=== PATIENT | female | born 1940 | race Caucasian/White ===

== ENCOUNTER 2024-07-06 23:42 | Inpatient (IN) | payer MEDICARE, SELFPAY ==
[2024-07-06 18:19] VITALS: BP 148/104
[2024-07-06 18:20] VITALS: BP 148/104
[2024-07-06 18:54] LABS: Anisocytosis 2+; Hypochromasia 1+; Macrocytosis 2+; Microcytosis 2+; Normal RBC Morphology No
[2024-07-06 18:55] LABS: % Basophils 0.3 % (0-2); % Immature Granulocytes 0.4 % (0-0.5); % Lymphocytes 5.9 % (20.5-51.1); % Monocytes 19.7 % (1.7-9.3); % Neutrophils 73.7 % (42.2-75.2); ALT (SGPT) 17 U/L (0-35); AST (SGOT) 27 U/L (14-36); Absolute Lymphocytes 0.5 10^3/uL (1.2-3.4); Absolute Monocytes 1.8 10^3/uL (0.1-0.6); Absolute Neutrophils 6.6 10^3/uL (1.4-6.5); Albumin 3.6 g/dl (3.5-5.0); Alkaline Phosphatase 164 U/L (38-126); Basophilic Stippling Slight; Blood Urea Nitrogen 25 mg/dl (7-17); Carbon Dioxide 28 mmol/L (22-30); Chloride 91 mmol/L (98-107); Glucose 116 mg/dl (70-99); Hematocrit 29.7 % (37.0-47.0); Hemoglobin 10.3 g/dL (12.0-16.0); Mean Corp Hgb Conc. 34.7 g/dL (33.0-37.0); Mean Corpuscular Hgb 30.7 pg (27.0-31.0); Mean Corpuscular Volume 88.4 fL (81.0-99.0); Mean Platelet Volume 9.6 fL (7.4-10.4); Nucleated Red Blood Cells % 0 %; Platelet Count 239 10^3/uL (130-400); Polychromasia 1+; Potassium 4.4 mmol/L (3.5-5.1); Red Blood Cell Count 3.36 10^6/uL (4.20-5.40); Red Cell Dist. Width 21.3 % (11.5-14.5); Sodium 124 mmol/L (135-145); Target Cells 1+; Total Bilirubin 0.5 mg/dl (0.2-1.3); Total Protein 6.6 g/dl (6.3-8.2); eGFR > 60.00
[2024-07-06 19:00] VITALS: BP 121/79
[2024-07-06 19:04] LABS: NT-proBNP 870 pg/ml; Troponin I < 0.012 ng/ml
--- NOTE | 2024-07-06 19:24 | ED.GENMED ---
History of Present Illness
General
Chief Complaint: Breathing Problem
Time Seen by Provider: 07/06/24 18:58
History of Present Illness
History of Present Illness:
84-year-old female with history of metastatic lung cancer, metastasis to bone, presenting to the ER for increased shortness of breath. Patient was diagnosed with lung cancer in . She has undergone 4 rounds of chemotherapy and has
also been on immunomodulating medications. She had a PET scan a few weeks ago, shows worsening of her tumor burden. Throughout the weekend, family notes that they have had difficulty keeping her oxygen saturations normal. They have had to use her
's air compressor to help keep her sats in the 90s, however primarily have been in the high 80s. Patient admits to shortness of breath. She denies cough. No report of any fever. She was due to get another infusion tomorrow. She follows
with [facility]. Does report history of DVT in the past, however notes that it is provoked. She is on aspirin, otherwise no thinners. Denies additional acute medical complaints.
Phy Exam
Physical Exam
Physical Exam:
General: Well-appearing, no clinical signs of dehydration, nontoxic and in no acute distress
HEENT: protecting airway
Neck: appears supple
CV: Tachycardic, regular rhythm, no evidence of cyanosis
Resp: Increased work of breathing, diminished air movement bilaterally
Abd: Soft and non-distended, no tenderness to palpation
Extremities: No deformities, no swelling
Neuro: alert, no focal neurologic deficit
: deferred
Rectal: deferred
Psych: Normal affect
Skin: Intact
Scores
Heart Failure Risk
Heart Failure Risk Score: Not Applicable
Course
Orders/Labs/Results
Orders:
Orders
07/06/24 18:32
Complete Blood Count/With Diff Urgent
Comprehensive Metabolic Panel Urgent
NT-proBNP Urgent
Troponin I Urgent
07/06/24 19:12
CT Chest PE Study Urgent
Comment:
Reason For Exam: known lung ca, tachy, hypoxic
07/06/24 23:00
Flush (0.9% Sodium Chloride) [Flush (Nss)] See Dose Instructions IV PER PROTOCOL
07/06/24 23:09
Osmolality, Random Urine Stat
Urine Sodium Stat
07/06/24 23:24
Admit/Transfer Patient As Directed
Co-Sign Provider:
Level of Care: Inpatient admission
Assign to:: Telemetry
Physician / Group: hospitalist
Diagnosis: pleural effusion
Reason for Telemetry: Other
Other Reason for Telemetry: paroxysmal SVT
Date to Stop Telemetry: 07/08/24
Time to Stop Telemetry: 11:00
Reason for Hospitalization: hypoxia
Expected length of stay greater than two midnights?: Yes
ELOS- Estimated Length of Stay in days: 2
I certify the patient meets the requirements for IP care: Yes
PRN Pain Medication Management As Directed
May give lesser potent ordered pain med per pt: Yes
preference::
Protocol:: Medication orders for pain may be administered in a
manner that supports deferring to patient preference
when the pt is:
- Requesting an ordered lesser potent pain medication.
Least to most potent pain medications are defined
as: acetaminophen < NSAID < tramadol < opioids
(morphine, oxycodone, hydromorphone).
- Requesting a lesser dose of the same medication IF
ORDERED.
- Requesting a less intrusive route of administration
if both routes are prescribed by the provider (PO <
IV).
07/06/24 23:26
Code Status As Directed
Resuscitation Status: Full Code
07/08/24 11:00
DC Protocol for Telemetry ONCE
Abnormal Lab Results
07/06/24
18:32
RBC 3.36 L 10^6/uL
(4.20-5.40)
Hgb 10.3 L g/dL
(12.0-16.0)
Hct 29.7 L %
(37.0-47.0)
RDW 21.3 H %
(11.5-14.5)
Absolute Neuts (auto) 6.6 H 10^3/uL
(1.4-6.5)
Absolute Lymphs (auto) 0.5 L 10^3/uL
(1.2-3.4)
Absolute Monos (auto) 1.8 H 10^3/uL
(0.1-0.6)
Lymphocytes % 5.9 L %
(20.5-51.1)
Monocytes % 19.7 H %
(1.7-9.3)
Sodium 124 L mmol/L
(135-145)
Chloride 91 L mmol/L
(98-107)
BUN 25 H mg/dl
(7-17)
Glucose 116 H mg/dl
(70-99)
Alkaline Phosphatase 164 H U/L
(38-126)
07/06/24 18:32
07/06/24 18:32
Vital Signs
Initial and Last Documented VS:
Initial Vital Signs
Temp Pulse Resp BP Pulse Ox
98.2 F 118 22 148/104 93
07/06/24 18:19 07/06/24 18:19 07/06/24 18:19 07/06/24 18:19 07/06/24 18:19
Last Documented Vital Signs
Temp Pulse Resp BP Pulse Ox
98.2 F 124 28 132/84 92
07/06/24 18:19 07/06/24 20:30 07/06/24 20:30 07/06/24 20:15 07/06/24 20:30
MDM/Problems Addressed
MDM/Problems Addressed:
84-year-old female with history of metastatic lung cancer presenting for increased shortness of breath for the past few days. Vital signs significant for tachycardia and hypoxia.
On exam, patient is tachypneic, however saturations have improved on supplemental O2. Diminished air movement bilaterally. Ultimately suspect symptoms from worsening cancerous process. She is afebrile, no cough with lower suspicion for infection.
PE is a consideration given patient's known malignancy and vital signs. Will plan for CT chest imaging.
22:00 -Labs relatively unremarkable. CT shows a large left-sided pleural effusion, likely malignant. Suspect etiology of presenting shortness of breath and hypoxia. Plan for admission for potential thoracentesis. Of note, CT does mention an
aortic aneurysm. On review of patient's PET scan that family has bedside, noted to be also mention on PET scan, reported to be 'stable ascending aortic aneurysm at 4.2 cm'.
*Critical Care Note
Total Time (30-74mins, 75-104mins- exclusive of procedures): Not Applicable
ED Attending Note
-
Portions of this chart may have been created with voice recognition software.� Occasional wrong word or��sound alike� substitutions may have occurred due to the inherent limitations of voice recognition software.
Discharge Plan
Departure
Patient Disposition: Admit
Date of Disposition: 07/06/24
Time of Disposition: 22:16
Presentation/result/management discussed w/ accepting MD/DO: Hospitalist
Condition: Fair
Discharge Problem:
Pleural effusion, left, Acute dyspnea, Acute hyponatremia
Interventions
Interventions:
*Risk Screen - Suicide Last Done: 07/06/24 18:19
*General Assessment Last Done: 07/06/24 18:19
*Neglect/Abuse Screening Last Done: 07/06/24 18:19
*ED COVID-19 Vaccine History Last Done: 07/06/24 18:19
ED- Cardiac Assessment Last Done: 07/06/24 18:59
ED- Pulmonary Assessment Last Done: 07/06/24 18:59
[2024-07-06 20:15] VITALS: BP 132/84
[2024-07-06 22:00] VITALS: BP 117/83
[2024-07-06 23:00] VITALS: BP 157/90
--- NOTE | 2024-07-06 23:10 | HPS.HSE ---
Family Physician
-
Family Physician: NOT KNOW UNKNOWN - PT DOES
Chief Complaint
-
Shortness of breath
History of Present Illness
This is a 84-year-old female with significant past medical history of metastatic lung cancer dgx Mar 2024, not O2 dependent, status post 4 rounds of chemo presenting to the emergency department with increased shortness of breath over the last 2 days.
Patient has history of hypertension, hyperlipidemia, former smoker with history of COPD, history of aortic insufficiency and known AAA and ascending aortic aneurysm who was diagnosed with metastatic lung cancer recently and is status post 4 cycles
of chemotherapy pending immunotherapy on Sunday. She had a PET scan a few weeks ago, shows worsening of her tumor burden. Throughout the weekend, family notes that they have had difficulty keeping her oxygen saturations normal. They have had to
use her 's air compressor to help keep her sats in the 90s, however primarily have been in the high 80s.
Patient denies having any fevers. She denies any cough. She denies any nausea or vomiting. She denies having any chest pain. She denies any palpitations lightheadedness dizziness. She denies any ankle swelling. Prior history of DVT which was
provoked.
In ED today she was afebrile, blood pressure was 132/84 with a pulse rate of 120 and she was satting 93% on 2 L. Troponin was negative. BNP was elevated at 870. CBC was unremarkable. Electrolytes notable for a sodium of 124 otherwise
unremarkable. Creatinine was 0.6 with a BUN of 25 and normal glucose. She had a a CT of the chest with PE study which is negative for PE. He does show evidence for thoracic aortic dissection. There is aneurysmal dilation of the ascending aorta,
short axis diameter of 4.3 cm at the level of the right main pulmonary artery, top normal considered 4.0 cm. Spiculated mass within the left upper lobe inferiorly and anteriorly, likely patient's known lung carcinoma. Moderate left pleural
effusion with loculation superiorly and laterally. Some thickening along the margin of the effusion, suggesting a neoplastic component.
This aneurysmal dilation of the ascending aorta is similar to prior from CT results brought by family.
Medical History
Past Medical History
Past Medical History: Reports Arrhythmia (Paroxysmal supraventricular tachycardia,), Cancer (Metastatic lung cancer diagnosed March 2024, status post 4 rounds of chemo, pending immunomodulation, history of breast cancer status postmastectomy,),
HTN, Hypercholesterolemia and Valvular Disease (Moderate aortic insufficiency,)
Past Surgical History: Reports Cholecystectomy, Gynocological (Partial hysterectomy) and Other (Right breast partial mastectomy, parotid gland tumor removal,)
Social History
Tobacco: Former Smoker
Alcohol: None
Drug: None
Personal:
Living: With Family
Employment: Retired
Family History
Family History: Not pertinent
Allergies / Home Medications
Allergies reflects when Allergies were last updated in [employer].
Home Medications with original date entered in [employer]
Allergy/Medication List:
Allergies
Allergy/AdvReac Type Severity Reaction Status Date / Time
amoxicillin Allergy Unknown Verified 07/06/24 19:47
Penicillins Allergy Unknown Verified 07/06/24 19:47
Home Medications
acetaminophen 325 mg tablet (Tylenol) 500 mg PO TID 07/06/24
albuterol 90 mcg/actuation aerosol inhaler 90 mcg inhalation Q4 breathing 07/06/24
aspirin 81 mg tablet 81 mg PO DAILY 07/06/24
carboplatin 450 mg intravenous powder for solution 348 mg IV ONCE 07/06/24
folic acid 1 mg tablet 1 mg PO DAILY 07/06/24
gabapentin 100 mg tablet 200 mg PO TID 07/06/24
guaifenesin 600 mg tablet, extended release 12 hr (Mucinex) 600 mg PO BID 07/06/24
lisinopril 20 mg tablet 40 mg PO DAILY 07/06/24
mesalamine 500 mg capsule,extended release 1,000 mg PO DAILY 07/06/24
metoprolol succinate 25 mg tablet,extended release 24 hr 25 mg PO DAILY 07/06/24
pembrolizumab 50 mg intravenous solution 200 mg IV ONCE 07/06/24
pemetrexed 500 mg intravenous powder for solution 725 mg IV ONCE 07/06/24
polyethylene glycol 3350 17 gram oral powder packet (Miralax) 17 g PO DAILY PRN constipation 07/06/24
rosuvastatin 40 mg tablet 40 mg PO DAILY 07/06/24
tiotropium bromide 18 mcg capsule with inhalation device (Spiriva with HandiHaler) 2 cap inhalation DAILY 07/06/24
tramadol 50 mg tablet 50 mg PO TID 07/06/24
Review of Systems
-
History Source: Patient and Family
Constitutional: Reports Weight Loss
EENT: Reports No Symptoms
Respiratory: Reports Trouble Breathing
Cardiac: Reports No Symptoms
Abdomen/GI: Reports No Symptoms
: Reports No Symptoms
Musculoskeletal: Reports No Symptoms
Skin: Reports No Symptoms
Neurological: Reports No Symptoms
Endocrine: Reports No Symptoms
Hematologic/Lymphatic: Reports No Symptoms
Psych: Reports No Symptoms
Physical Exam
Vital Signs
Vital Signs
Temp Pulse Resp BP Pulse Ox
98.2 F 124 28 132/84 92
07/06/24 18:19 07/06/24 20:30 07/06/24 20:30 07/06/24 20:15 07/06/24 20:30
Physical Exam
General: Respiratory Distress, Poor Appetite and Appears Chronically Ill
HEENT: NormoCephalic, Anicteric, Moist mucous membranes and Atraumatic
Respiratory: Decreased Breath Sounds
Cardiac: S1/S2, Regular Rhythm and Tachycardia
Breast: Deferred by me
GI: Soft, Non Tender, Non Distended and Normal Bowel Sounds
Rectal: Deferred by Provider
Genito-urinary: Deferred by me
Musculoskeletal: No Clubbing, No Cyanosis and No Edema
Skin: Warm
Neuro: AO x 3 and Nonfocal/grossly intact
Hematologic/Lymphatic: No Lymphadenopathy
Psych: Calm
Laboratory Results
-
07/06/24 18:32
07/06/24 18:32
Laboratory Results
Total Bilirubin 0.5 mg/dl (0.2-1.3) 07/06/24 18:32
AST 27 U/L (14-36) 07/06/24 18:32
ALT 17 U/L (0-35) 07/06/24 18:32
Alkaline Phosphatase 164 U/L (38-126) H 07/06/24 18:32
Troponin I < 0.012 ng/ml 07/06/24 18:32
Data Reviewed
-
CT Scan: Report Reviewed by me
Lab Data: Labs Reviewed by me
Old Records: Reviewed
Impression/Plan
-
IMPRESSION:
84-year-old with recent diagnosis of metastatic lung cancer presenting to the emergency department with progressive shortness of breath over the last 2 days, hypoxia without cough fevers or chills and found to have a new loculated moderate
left-sided pleural effusion, no pulmonary embolism. She is maintaining oxygen saturation of around 95 to 97% on 2 L. She still feels very dyspneic. BNP is elevated but no signs of overt volume overload. Sodium notable for being 124 no priors to
compare.
PLAN:
SOB -suspect secondary to malignant pleural effusion. Effusion is loculated. No signs of acute infection.
- admit to telemetry
- supplemental oxygen to keep sat >93
- pain control and anxiolytic
- IR consult for therapeutic thoracentesis in am, diagnostic labs ordered
- monitor for any signs of infection
- continue neb (no signs of acute COPD exacerbation)
- pulm consult
Hyponatremia - Likely related to metastatic lung Ca. Na 124. She does seem dry on exam. BNP elevated and normotensive.
- d/w nephro, fluid restriction to 1200 cc for now
- no iv fluids recommended
- check urine osms and sodium
- nephrology consult
Metastatic lung Ca - diagnosed Mar 2024, s/p carboplatin/pemetrexed x 4 cycles. Pending immunomodulation therapy at [facility] sunday
- pain control and antiemetics
- folate
HTN/SVT
- continue metoprolol and lisinopril
DVT PPX - lovenox sq
Code status - Full Code
[2024-07-07] VITALS (10 sets, daily range): BP systolic 107–166; BP diastolic 68–101; BMI 19.2
[2024-07-07] MEDS: ProAIR HFA INHALER 2 PUFF INH (01:20)
[2024-07-07] MEDS: DILAUDID 0.5 MG IV (01:40)
[2024-07-07] MEDS: ASPIR LOW (ENTERIC COATED) PO (07:50)
[2024-07-07] MEDS: CRESTOR 40 MG PO (07:53)
[2024-07-07] MEDS: MUCINEX 600 MG PO (07:53)
[2024-07-07] MEDS: TOPROL XL 25 MG PO (07:53)
[2024-07-07] MEDS: ZESTRIL 40 MG PO (07:53)
[2024-07-07] MEDS: ULTRAM 50 MG PO ×3 (07:54→21:04)
[2024-07-07] MEDS: TYLENOL 500 MG PO ×3 (07:54→21:04)
[2024-07-07] MEDS: FOLVITE 1 MG PO (07:54)
[2024-07-07 08:02] LABS: Hematocrit 29.4 % (37.0-47.0); Hemoglobin 10.4 g/dL (12.0-16.0); Mean Corp Hgb Conc. 35.4 g/dL (33.0-37.0); Mean Corpuscular Hgb 30.5 pg (27.0-31.0); Mean Corpuscular Volume 86.2 fL (81.0-99.0); Mean Platelet Volume 9.8 fL (7.4-10.4); Platelet Count 264 10^3/uL (130-400); Red Blood Cell Count 3.41 10^6/uL (4.20-5.40); Red Cell Dist. Width 21.1 % (11.5-14.5); White Blood Cell Count 7.6 10^3/uL (4.8-10.8)
[2024-07-07] MEDS: XOPENEX HFA 45 MCG INHALER 1 PUFF INH ×2 (08:10→18:26)
[2024-07-07] MEDS: SPIRIVA RESPIMAT 2.5 MCG 2 PUFF INH (08:10)
[2024-07-07 08:20] LABS: Blood Urea Nitrogen 15 mg/dl (7-17); Calcium 8.4 mg/dl (8.4-10.2); Carbon Dioxide 30 mmol/L (22-30); Chloride 99 mmol/L (98-107); Estimated Creatinine Clearance 51 ml/min; Glucose 102 mg/dl (70-99); LDH 286 U/L (120-246); Potassium 4.1 mmol/L (3.5-5.1); Sodium 134 mmol/L (135-145); Total Protein 6.1 g/dl (6.3-8.2); eGFR > 60.00
[2024-07-07] MEDS: NEURONTIN 200 MG PO ×3 (10:21→21:04)
--- NOTE | 2024-07-07 11:45 | W.CON.NEPH ---
Consultation
-
Date/Time Consultation Requested: 07/07/2024 7 AM
Date/Time Consultation Performed: 07/07/24 11 AM
Requesting Provider: Dr. Roberts
Performing Provider: Dr. Palacios
Reason for Consultation: Hyponatremia
Medical History
-
Chief Complaint: Shortness of breath
History of Present Illness:
This is an 84-year-old female who has diagnosis of metastatic lung cancer March 2024 who has undergone 4 rounds of chemotherapy with immunotherapy. She came to the emergency room because of worsening shortness of breath of the last 2 days. She
also reports decreased oral intake in the last day as well. She generally eats fairly well and drinks about 48 to 50 ounces of fluid per day mostly water. Because of worsening oxygen saturations she came to the ER. Here she was noted to have
hyponatremia with a sodium level of 121. They have older blood work which do show varying hyponatremia numbers around 130 on average since diagnosis in March. She does have hypertension on a multidrug regimen as well as hyperlipidemia on statin
therapy.
Past Medical History
Paroxysmal supraventricular tachycardia, Metastatic lung cancer diagnosed March 2024, status post 4 rounds of chemo, pending immunomodulation, history of breast cancer status postmastectomy, HTN, Hypercholesterolemia and Moderate aortic
insufficiency
Past Surgical History: Reports Cholecystectomy, Partial hysterectomy, Right breast partial mastectomy, parotid gland tumor removal
Social History
Tobacco: Former Smoker
Alcohol: None
Family History
Family History: Not Pertinent
Allergies / Home Medications
Allergy/AdvReac Type Severity Reaction Status Date / Time
amoxicillin Allergy Unknown Verified 07/06/24 19:47
Penicillins Allergy Unknown Verified 07/06/24 19:47
�Medication �Instructions �Recorded �Confirmed �Type
acetaminophen 325 mg tablet 500 mg PO TID 07/06/24 07/06/24 History
(Tylenol)
albuterol 90 mcg/actuation aerosol 90 mcg inhalation Q4 breathing 07/06/24 07/06/24 History
inhaler
aspirin 81 mg tablet 81 mg PO DAILY 07/06/24 07/06/24 History
carboplatin 450 mg intravenous 348 mg IV ONCE 07/06/24 07/06/24 History
powder for solution
folic acid 1 mg tablet 1 mg PO DAILY 07/06/24 07/06/24 History
gabapentin 100 mg tablet 200 mg PO TID 07/06/24 07/06/24 History
guaifenesin 600 mg tablet, 600 mg PO BID 07/06/24 07/06/24 History
extended release 12 hr (Mucinex)
lisinopril 20 mg tablet 40 mg PO DAILY 07/06/24 07/06/24 History
mesalamine 500 mg capsule,extended 1,000 mg PO DAILY 07/06/24 07/06/24 History
release
metoprolol succinate 25 mg 25 mg PO DAILY 07/06/24 07/06/24 History
tablet,extended release 24 hr
pembrolizumab 50 mg intravenous 200 mg IV ONCE 07/06/24 07/06/24 History
solution
pemetrexed 500 mg intravenous 725 mg IV ONCE 07/06/24 07/06/24 History
powder for solution
polyethylene glycol 3350 17 gram 17 g PO DAILY PRN constipation 07/06/24 07/06/24 History
oral powder packet (Miralax)
rosuvastatin 40 mg tablet 40 mg PO DAILY 07/06/24 07/06/24 History
tiotropium bromide 18 mcg capsule 2 cap inhalation DAILY 07/06/24 07/06/24 History
with inhalation device (Spiriva
with HandiHaler)
tramadol 50 mg tablet 50 mg PO TID 07/06/24 07/06/24 History
Review of Systems
-
Decreased appetite, shortness of breath
All other systems: Negative unless noted
Physical Exam
Vital Signs
Vital Signs
Temp Pulse Resp BP Pulse Ox
98.4 F 126 20 137/87 95
07/07/24 11:28 07/07/24 11:28 07/07/24 11:28 07/07/24 11:28 07/07/24 11:28
Lab Results
WBC 7.6 10^3/uL (4.8-10.8) 07/07/24 07:53
RBC 3.41 10^6/uL (4.20-5.40) L 07/07/24 07:53
Hgb 10.4 g/dL (12.0-16.0) L 07/07/24 07:53
Hct 29.4 % (37.0-47.0) L 07/07/24 07:53
Plt Count 264 10^3/uL (130-400) 07/07/24 07:53
Sodium 134 mmol/L (135-145) L D 07/07/24 07:53
Potassium 4.1 mmol/L (3.5-5.1) 07/07/24 07:53
Chloride 99 mmol/L (98-107) 07/07/24 07:53
Carbon Dioxide 30 mmol/L (22-30) 07/07/24 07:53
BUN 15 mg/dl (7-17) 07/07/24 07:53
Creatinine 0.5 mg/dL (0.6-1.0) L 07/07/24 07:53
eGFR > 60.00 07/07/24 07:53
Glucose 102 mg/dl (70-99) H 07/07/24 07:53
Calcium 8.4 mg/dl (8.4-10.2) 07/07/24 07:53
Uck-[id number] Pept 870 pg/ml 07/06/24 18:32
Albumin 3.6 g/dl (3.5-5.0) 07/06/24 18:32
CT chest 3-25
IMPRESSION: Motion artifact limiting evaluation of the right lower lobe pulmonary arteries. Given this limitation, no convincing evidence for pulmonary embolism.
No evidence for thoracic aortic dissection. There is aneurysmal dilation of the ascending aorta, short axis diameter of 4.3 cm at the level of the right main pulmonary artery, top normal considered 4.0 cm.
Spiculated mass within the left upper lobe inferiorly and anteriorly, likely patient's known lung carcinoma.
Moderate left pleural effusion with loculation superiorly and laterally. Some thickening along the margin of the effusion, suggesting a neoplastic component.
Enlargement of both adrenal glands, which could represent metastatic disease, although could also represent hyperplasia and/or adenomas.
Evidence for bony metastatic disease and epidural extension involving the lower thoracic and upper lumbar spine. If further imaging evaluation is desired, consideration for MRI of the thoracic spine and upper lumbar spine. Not mentioned above,
there is also evidence for scattered rib metastatic lesions.
Physical Exam
Patient is awake alert oriented and in no distress. Mood and affect were pleasant, insight and judgment were good. Pupils are equal round and reactive to light, extraocular movements are intact, sclera were anicteric. Hearing was normal, ears and
nose are intact. Oropharynx was clear. Neck was supple with trachea midline and no thyromegaly. Heart was regular rate and rhythm without rubs. Lower extremities without edema. Lungs were clear to auscultation bilaterally and with normal
excursion. Abdomen was soft, nontender, with normal active bowel sounds, and no hepatosplenomegaly. Skin was without rash and with normal turgor.
Data Reviewed
-
CT Scan: Report Reviewed by me
Medical Tests (Nuc Med, Echo etc): Image Personally Visualized and interpreted (EKG on 07/06/2024 by my reading sinus tachycardia)
Labs: Labs Reviewed by me
Old Records: Reviewed
Assessment/Plan
-
Assessment
Metastatic lung cancer
Hyponatremia
Hypertension
Back pain from bony metastasis
Plan
48 ounce fluid restriction
Await urine studies
There is been already some improvement in sodium level with conservative therapy
Follow BMP
Encourage oral intake
Discussed with family
I suspect hyponatremia is due to lung cancer with contribution of pain as well.
[2024-07-07 12:55] LABS: Osmolality Urine 340 mOsm/kg (300-900)
[2024-07-07] MEDS: XOPENEX HFA 45 MCG INHALER INH (13:26)
[2024-07-07 13:38] LABS: Urine Sodium 36 mmol/L (30-90)
--- NOTE | 2024-07-07 13:51 | CON.PUL ---
Consultation
Consultation Request
Date/Time Consultation Requested: 07/07/24
Date/Time Consultation Performed: 07/07/24
Performing Provider: Martin
Reason for Consultation: Effusion
Medical History
-
History of Present Illness:
Patient is a 84-year-old female with significant past medical history of metastatic lung cancer recently diagnosed at [facility] Mar 2024, not O2 dependent, status post 4 rounds of chemo presenting to the emergency department with increased shortness of
breath over the last 2 days. In ED today she was afebrile, blood pressure was 132/84 with a pulse rate of 120 and she was satting 93% on 2 L. Troponin was negative. BNP was elevated at 870. CBC was unremarkable. Electrolytes notable for a sodium
of 124 otherwise unremarkable. Creatinine was 0.6 with a BUN of 25 and normal glucose. She had a a CT of the chest with PE study which is negative for PE, but shows evidence for spiculated mass within the left upper lobe inferiorly and anteriorly,
with moderate left pleural effusion. She has never had effusion present before. Underwent thoracentesis today by IR.
Past Medical History
Past Medical History: Other (see list below)
Social History
Tobacco: Former Smoker
Alcohol: None
Drug: None
Family History
Family History: Reviewed & Not Pertinent
Allergies / Home Medications
Allergies
Allergy/AdvReac Type Severity Reaction Status Date / Time
amoxicillin Allergy Unknown Verified 07/06/24 19:47
Penicillins Allergy Unknown Verified 07/06/24 19:47
Home Medications
�Medication �Instructions �Recorded �Confirmed �Last Taken �Type
acetaminophen 325 mg tablet 500 mg PO TID 07/06/24 07/06/24 Unknown History
(Tylenol)
albuterol 90 mcg/actuation aerosol 90 mcg inhalation Q4 breathing 07/06/24 07/06/24 Unknown History
inhaler
aspirin 81 mg tablet 81 mg PO DAILY 07/06/24 07/06/24 Unknown History
carboplatin 450 mg intravenous 348 mg IV ONCE 07/06/24 07/06/24 Unknown History
powder for solution
folic acid 1 mg tablet 1 mg PO DAILY 07/06/24 07/06/24 Unknown History
gabapentin 100 mg tablet 200 mg PO TID 07/06/24 07/06/24 Unknown History
guaifenesin 600 mg tablet, 600 mg PO BID 07/06/24 07/06/24 Unknown History
extended release 12 hr (Mucinex)
lisinopril 20 mg tablet 40 mg PO DAILY 07/06/24 07/06/24 Unknown History
mesalamine 500 mg capsule,extended 1,000 mg PO DAILY 07/06/24 07/06/24 Unknown History
release
metoprolol succinate 25 mg 25 mg PO DAILY 07/06/24 07/06/24 Unknown History
tablet,extended release 24 hr
pembrolizumab 50 mg intravenous 200 mg IV ONCE 07/06/24 07/06/24 Unknown History
solution
pemetrexed 500 mg intravenous 725 mg IV ONCE 07/06/24 07/06/24 Unknown History
powder for solution
polyethylene glycol 3350 17 gram 17 g PO DAILY PRN constipation 07/06/24 07/06/24 Unknown History
oral powder packet (Miralax)
rosuvastatin 40 mg tablet 40 mg PO DAILY 07/06/24 07/06/24 Unknown History
tiotropium bromide 18 mcg capsule 2 cap inhalation DAILY 07/06/24 07/06/24 Unknown History
with inhalation device (Spiriva
with HandiHaler)
tramadol 50 mg tablet 50 mg PO TID 07/06/24 07/06/24 Unknown History
Review of Systems
-
History Source: Patient
All other systems: Negative unless noted
Vitals / Labs / Diagnostic Testing
Vital Signs
Temp Pulse Resp BP Pulse Ox
97.7 F 123 26 144/78 98
07/07/24 13:20 07/07/24 13:20 07/07/24 13:20 07/07/24 13:20 07/07/24 13:20
Lab Data
07/07/24 07:53
07/07/24 07:53
Diagnostic Testing:
Physical Exam
-
HEENT: Normocephalic, Anicteric and Moist Mucous Membranes
Cardiovascular: S1/S2, Regular Rhythm and Other (kyphosis present)
Respiratory: Clear, Non-Labored Respirations and Other (overall decreased)
GI: Soft, Non Distended and Non Tender
Neurology: Awake, Alert, Oriented and No Motor Deficits
Skin: Warm, Dry and Good Color
General: Comfortable, Poor Appetite and Other (thin appearing)
Assessment
-
Patient is a 84-year-old female with significant past medical history of metastatic lung cancer recently diagnosed at [facility] Mar 2024, not O2 dependent, status post 4 rounds of chemo presenting to the emergency department with increased shortness of
breath over the last 2 days. In ED today she was afebrile, blood pressure was 132/84 with a pulse rate of 120 and she was satting 93% on 2 L. Troponin was negative. BNP was elevated at 870. CBC was unremarkable. Electrolytes notable for a sodium
of 124 otherwise unremarkable. Creatinine was 0.6 with a BUN of 25 and normal glucose. She had a a CT of the chest with PE study which is negative for PE, but shows evidence for spiculated mass within the left upper lobe inferiorly and anteriorly,
with moderate left pleural effusion. She has never had effusion present before. Underwent thoracentesis today by IR.
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
Metastatic lung cancer, recently diagnosed March 2024 at [facility]
Acute on chronic shortness of breath
Acute hypoxemia, satting 93% on 2 L
Hyponatremia
Conditions present prior to admission
HTN
Atrial tachycardia
Heavy cigarette smoker
Mild aortic insufficiency
Paroxysmal SVT
DVT
Diverticulitis
Moderate aortic insufficiency
Hyperlipidemia
AAA
MGUS
Diverticulosis
Osteoporosis
Plan
Hypoxemia noted on arrival, 93% on 2L
Not on o2 at home, will need eventual home O2 evaluation
Prior history of lung disease is noted including met lung cancer diagnosed at [facility]
Has seen [facility] for FU
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
s/p thora by IR, chem/culture/cyto pending
CXR/CT obtained indicating improvement post procedure, can recheck in next 24-48 hours for recurrence
We discussed possibility of ASEPT use if needed
Other imaging reviewed--CT Chest noted, known L sided cancer
No prior imaging from [facility] noted
Prior ECHO results are reviewed indicating stable function
Resume on home meds
Smoking history noted--former/has quit
Smoking cessation ongoing encouraged
Underweight noted, BMI 19
Dietary consult
Will need outpatient pulmonary evaluation --we discussed following at [facility] where she is established
Reviewed with patient
If doing well and no recurrence of fluid, can assess for d/c and forward results to OP care team
We will follow
Diagnostic Data
Chest X-Ray:
CT Scan: CHEST 07/06/24- Motion artifact limiting evaluation of the right lower lobe pulmonary arteries. Given this limitation, no convincing evidence for pulmonary embolism. No evidence for thoracic aortic dissection. There is aneurysmal dilation of
the ascending aorta, short axis diameter of 4.3 cm at the level of the right main pulmonary artery, top normal considered 4.0 cm. Spiculated mass within the left upper lobe inferiorly and anteriorly, likely patient's known lung carcinoma. Moderate
left pleural effusion with loculation superiorly and laterally. Some thickening along the margin of the effusion, suggesting a neoplastic component. Enlargement of both adrenal glands, which could represent metastatic disease, although could also
represent hyperplasia and/or adenomas. Evidence for bony metastatic disease and epidural extension involving the lower thoracic and upper lumbar spine. If further imaging evaluation is desired, consideration for MRI of the thoracic spine and upper
lumbar spine. Not mentioned above, there is also evidence for scattered rib metastatic lesions.
ECHO 10/04/22- CONCLUSIONS
1. Normal chamber sizes
2. Moderate to severe aortic insufficiency/mild stenosis
3. Normal left and right ventricular systolic function
4. Grade 1 diastolic dysfunction
5. Mild pulmonary hypertension
Echo: 07/29/21- CONCLUSIONS
1. Normal chamber sizes
2. Aortic valve sclerosis with moderate to severe aortic insufficiency
3. Hyperdynamic left ventricular wall motion and systolic function
4. Normal right ventricular systolic function
5. Grade 1 diastolic dysfunction
6. Top normal to mildly elevated right ventricular systolic pressure
PFT's:
Reports and relevant images were personally reviewed.
Total time spent on this consultation __76__ minutes which includes review of history, physical exam, medications, laboratory data, personal review of imaging, extensive review of outpatient records, discussion with care team and respiratory therapy.
[2024-07-07 14:45] LABS: Body Fluid Amylase 43 U/L; Body Fluid LDH 211 U/L; Body Fluid Protein 4.2 g/dl
--- NOTE | 2024-07-07 15:04 | W.PN.HOSP.TC ---
Today's Communication/Plan
-
Wean oxygen as able
Pulmonary consult
Resume diet
Assessment / Plan
Assessment / Plan
Gen-AAOx3, NAD
HEENT-NC, AT, anicteric, clear oral mm
Neck-supple
CV-reg, no M, +S1/S2
Lungs-clear B/L
Abd-soft, NT, ND
Ext-no edema
Musculoskeletal-no cyanosis, clubbing
Skin-warm and dry
Neuro-grossly non-focal
Psych-calm, cooperative
Acute hypoxic respiratory insufficiency -due to symptomatic pleural effusion, in the setting of underlying emphysema. Currently on 4 L nasal cannula oxygen. Wean down as able.
Symptomatic left pleural effusion -concern for malignant effusion given underlying metastatic lung cancer.
Hemodynamically stable despite tachycardia. 950 cc clear peter pleural fluid removed via thoracentesis by IR today. Fluid to be sent for cytology. LDH 211, total protein 4.2, consistent with exudative effusion based on Lights criteria.
Pulmonary consulted.
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 Lung cancer diagnosed March 2024. Completed 4 rounds of chemotherapy. Follows up with [facility], Dr. Colette Mayer ([phone]). I did provide her with an update today.
Hyponatremia -improved with fluid restriction. Nephrology following. Suspect etiology of hyponatremia is due to underlying lung cancer. Urine osmolality 340, urine sodium 36.
Normocytic anemia -unknown chronicity. Etiology is likely due to metastatic cancer. Baseline hemoglobin unknown. Recommend outpatient follow-up.
Hx PSVT
COPD without exacerbation -stable.
Hx ascending aortic aneurysm
Essential hypertension
Hyperlipidemia -rosuvastatin.
History of breast cancer
Full code
Dispo -hopefully can discharge tomorrow if stable in order to follow-up with her oncologist as soon as possible. Updated family at the bedside. All questions answered.
Anticipated Discharge: Within 24 hours
Subjective/Interval History
-
Date of Service: July 07, 2024
Patient seen and examined. Feeling better. Had thoracentesis earlier today. No complaints.
Objective Data
-
Labs:
Laboratory Results
07/07/24
07:53
WBC 7.6
Hgb 10.4 L
Hct 29.4 L
Plt Count 264
Sodium 134 L D
Potassium 4.1
Chloride 99
Carbon Dioxide 30
BUN 15
Creatinine 0.5 L
Glucose 102 H
Calcium 8.4
Vital Signs:
Vital Signs
Temp Pulse Resp BP Pulse Ox
97.7 F 122 24 113/69 98
07/07/24 13:20 07/07/24 14:04 07/07/24 14:04 07/07/24 14:04 07/07/24 13:20
I&O
07/06/24 07/07/24 07/08/24
06:59 06:59 06:59
Intake Total 120 / 120
Balance 120 / 120
Review of Systems
-
History Source: Patient
All other systems: Reviewed and negative
[2024-07-07 15:55] LABS: Body Fluid Mononuclear 60.6 %; Body Fluid Polymorphonuclear 39.4 %; Body Fluid WBC 807 /CUMM
[2024-07-07 16:04] LABS: Body Fluid Second Tech EYM
[2024-07-07] MEDS: LOVENOX 30 MG SC (17:45)
--- NOTE | 2024-07-07 17:47 | CM ---
CM reviewed medical records. Plan for discharge possible tomorrow. CM will await Home Oxygen Assessment for further discharge planning needs.
[2024-07-07] MEDS: MUCINEX PO ×2 (21:04→21:14)
[2024-07-08] VITALS (7 sets, daily range): BP systolic 95–145; BP diastolic 55–89; PULSE 103; O2SAT 99
[2024-07-08] MEDS: SPIRIVA RESPIMAT 2.5 MCG 2 PUFF INH (08:16)
[2024-07-08] MEDS: XOPENEX HFA 45 MCG INHALER 1 PUFF INH ×3 (08:16→20:04)
[2024-07-08 09:08] LABS: Blood Urea Nitrogen 17 mg/dl (7-17); Calcium 7.8 mg/dl (8.4-10.2); Carbon Dioxide 28 mmol/L (22-30); Chloride 97 mmol/L (98-107); Estimated Creatinine Clearance 51 ml/min; Glucose 52 mg/dl (70-99); Sodium 134 mmol/L (135-145); eGFR > 60.00
--- NOTE | 2024-07-08 09:15 | W.PN.NEPH.PH ---
Addendum entered and electronically signed by Xiomara Mace MD 07/08/24 18:13:
with soft BP and tachycardia hold ARB, adjust BB as needed
Original Note:
Today's Communication / Plan
-
cotn FR, encourage solute intake
Assessment/Plan
-
Assessment
Metastatic lung cancer
Hyponatremia
Hypertension
Back pain from bony metastasis
Plan
sodium stable , cont 48 ounce fluid restriction
U osmo 340 high suggests SIADH from malignancy and pain , U na 36
Encourage oral solute intake
Discussed with family
monitro Bps
-
-
Date of Service: July 08, 2024
CC / HPI / ROS
-
Chief Complaint:
hyponatremia
History of Present Illness:
sodium stable 134, bp stable
BG low this am , but improved post meal
no fever
s/p thoracentesis 950cc
Review of Systems:
improving sob, no cp
no nv/
Labs
-
Labs:
WBC 7.6 10^3/uL (4.8-10.8) 07/07/24 07:53
RBC 3.41 10^6/uL (4.20-5.40) L 07/07/24 07:53
Hgb 10.4 g/dL (12.0-16.0) L 07/07/24 07:53
Hct 29.4 % (37.0-47.0) L 07/07/24 07:53
Plt Count 264 10^3/uL (130-400) 07/07/24 07:53
Sodium 134 mmol/L (135-145) L 07/08/24 06:38
Potassium 4.0 mmol/L (3.5-5.1) 07/08/24 06:38
Chloride 97 mmol/L (98-107) L 07/08/24 06:38
Carbon Dioxide 28 mmol/L (22-30) 07/08/24 06:38
BUN 17 mg/dl (7-17) 07/08/24 06:38
Creatinine 0.5 mg/dL (0.6-1.0) L 07/08/24 06:38
eGFR > 60.00 07/08/24 06:38
Glucose 52 mg/dl (70-99) L* 07/08/24 06:38
Calcium 7.8 mg/dl (8.4-10.2) L 07/08/24 06:38
Trn-L-Yhaaryivoxj Pept 870 pg/ml 07/06/24 18:32
Albumin 3.6 g/dl (3.5-5.0) 07/06/24 18:32
Physical Exam
-
Vital Signs:
Vital Signs
Temp Pulse Resp BP Pulse Ox
98 F 120 16 95/55 97
07/08/24 11:13 07/08/24 11:13 07/08/24 11:13 07/08/24 11:13 07/08/24 11:13
Cardiovascular:: Regular rate and rhythm
Respiratory:: Bilateral: Rales (fine at bases)
Lung Excursion:: Normal
Abdomen:: Nontender and Soft
Extremity Edema:: None: Bilateral:
Malone Catheter: No
[2024-07-08] MEDS: ZESTRIL 40 MG PO (09:20)
[2024-07-08] MEDS: FOLVITE 1 MG PO (09:20)
[2024-07-08] MEDS: ULTRAM 50 MG PO ×3 (09:20→21:31)
[2024-07-08] MEDS: TYLENOL 500 MG PO ×3 (09:20→21:31)
[2024-07-08] MEDS: ASPIR LOW (ENTERIC COATED) 81 MG PO (09:21)
[2024-07-08] MEDS: NEURONTIN 200 MG PO ×3 (09:21→21:30)
[2024-07-08] MEDS: CRESTOR 40 MG PO (09:21)
[2024-07-08] MEDS: TOPROL XL 25 MG PO (09:21)
[2024-07-08] MEDS: MUCINEX 600 MG PO ×2 (09:21→19:29)
--- NOTE | 2024-07-08 10:00 | W.PN.HOSP.TC ---
Addendum entered and electronically signed by Antwan Roberts DO 07/08/24 16:45:
Patient is in need of oxygen at 3 liters/minute via nasal cannula continuously due to pulse oximetry of 86% on room air at rest. Oxygen will help to improve hypoxemia. Patient is mobile within the home. DuoNeb therapy has been tried and is
ineffective in treating hypoxemia related symptoms. Oxygen is needed to improve symptoms.
Addendum entered and electronically signed by Antwan Roberts DO 07/08/24 14:02:
Underweight
Repeat CT chest shows small subsegmental embolus in the right lower lobe. No heart strain. Severe centrilobular emphysema. Small left pleural effusion. Likely some loculation.
Findings discussed with patient and family. I also spoke with the patient's outpatient oncologist. All parties agree with proceeding with anticoagulation with Eliquis. Risks of bleeding discussed.
Suspect her persistent sinus tachycardia is due to multiple issues including hypoxia, malignancy, pulmonary embolism.
Original Note:
Today's Communication/Plan
-
CT chest
PT/OT
Ambulatory pulse ox on room air
Assessment / Plan
Assessment / Plan
Gen-AAOx3, NAD
HEENT-NC, AT, anicteric, clear oral mm
Neck-supple
CV-reg, tachycardic, no M, +S1/S2
Lungs-clear B/L
Abd-soft, NT, ND
Ext-no edema
Musculoskeletal-no cyanosis, clubbing
Skin-warm and dry
Neuro-grossly non-focal
Psych-calm, cooperative
Acute hypoxic respiratory insufficiency -due to symptomatic pleural effusion, in the setting of underlying emphysema. Currently on 4 L nasal cannula oxygen. Wean down as able.
Symptomatic left pleural effusion -concern for malignant effusion given underlying metastatic lung cancer.
Hemodynamically stable despite tachycardia. 950 cc clear peter pleural fluid removed via thoracentesis by IR today. Fluid to be sent for cytology. LDH 211, total protein 4.2, consistent with exudative effusion based on Lights criteria.
Pulmonary consulted.
Sinus tachycardia -asymptomatic. CT chest on July 06 did not show obvious pulmonary embolism. However, study was limited by motion artifact. Spoke with the radiologist who read the study and plan will be to recheck CT chest to rule out pulm
embolism.
If CT does not show PE then I suspect the tachycardia could be related to multiple factors including hypoxia, malignancy, anemia.
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 Lung cancer diagnosed March 2024. Completed 4 rounds of chemotherapy. Follows up with [facility], Dr. Colette Mayer ([phone]). I did provide her with an update on July 07.
Hyponatremia -improved with fluid restriction. Nephrology following. Suspect etiology of hyponatremia is due to underlying lung cancer. Urine osmolality 340, urine sodium 36.
Normocytic anemia -unknown chronicity. Etiology is likely due to metastatic cancer. Baseline hemoglobin unknown. Recommend outpatient follow-up.
Hx PSVT
COPD without exacerbation -stable.
Hx ascending aortic aneurysm
Essential hypertension
Hyperlipidemia -rosuvastatin.
History of breast cancer
Full code
Dispo -await CT chest, PT/OT, ambulatory pulse ox on room air.
Updated family at the bedside. Updated granddaughter Peter on the phone.
Anticipated Discharge: Within 24 hours
Subjective/Interval History
-
Date of Service: July 08, 2024
Patient seen and examined. No complaints.
Objective Data
-
Labs:
Laboratory Results
07/08/24
06:38
Sodium 134 L
Potassium 4.0
Chloride 97 L
Carbon Dioxide 28
BUN 17
Creatinine 0.5 L
Glucose 52 L*
Calcium 7.8 L
Vital Signs:
Vital Signs
Temp Pulse Resp BP Pulse Ox
98.8 F 135 20 136/85 95
07/08/24 07:00 07/08/24 08:22 07/08/24 08:22 07/08/24 07:00 07/08/24 08:22
I&O
07/07/24 07/08/24 07/09/24
06:59 06:59 06:59
Intake Total 120 / 120 420 / 420 480 / 480
Balance 120 / 120 420 / 420 480 / 480
Review of Systems
-
History Source: Patient
All other systems: Reviewed and negative
--- NOTE | 2024-07-08 10:32 | PN.CDI ---
CDI
- -
CDI:
Physician Documentation Request
Admit Date: 07/06/24 23:42
Dear Doctor Alejandra,
Patient admitted with pleural effusion.
Please review the following and provide your response in the progress notes.
Clinical Indicators:
Height: 5' 1'
Weight: 101 llbs
BMI: 19.1
If possible, please provide an associated diagnosis related to the abnormal BMI, such as:
Underweight
Cachectic
BMI is not significant
Other
BMI < or = to 19.9
Underweight
Weight Loss
Cachectic
Anorexia
Use of terms such as suspected, likely, concern for, or probable (associated with a specific diagnosis that is being evaluated, monitored, or treated as if it exists) are acceptable and can be coded in the inpatient setting, when documented at the
time of discharge.
Thank you,
Ashlyn Brenner RN, BSN
CDI Specialist
Available via [facility] text
Please use your independent medical judgment in providing your response.
--- NOTE | 2024-07-08 11:09 | CM ---
Addendum entered by Luzma Mora 07/08/24 16:21:
referral sent to [facility] faxed and awaiting response. CM will also send referral to home health per family choice when they determine who patient currently has coming to home. IMM form provided and patient to review with family for discharge
when O@ has been confirmed, tomorrow.
Original Note:
Patient for assessment of home health for home O2, pending assessment. Patient son in law at bedside. He has [facility] and will talk to family about options, but feels that patient may chose [facility]. CM will continue to follow for
discharge planning needs.
Plan; home with home O2 pending assessment
[2024-07-08 11:30] LABS: Glucose - Point of Care 235 mg/dl (70-99)
[2024-07-08] MEDS: ELIQUIS 10 MG PO ×2 (12:32→19:29)
--- NOTE | 2024-07-08 13:17 | W.PN.PUL3 ---
Today's Communication / Plan
-
Better today, ambulating, needs PT eval
CT showing small PE, placed on Eliquis per team
Can repeat CXR in AM to eval fluid recurrence, cyto still pending
If stable, can consider d/c planning if patient agreeable
Assessment
-
Patient is a 84-year-old female with significant past medical history of metastatic lung cancer recently diagnosed at [facility] Mar 2024, not O2 dependent, status post 4 rounds of chemo presenting to the emergency department with increased shortness of
breath over the last 2 days. In ED today she was afebrile, blood pressure was 132/84 with a pulse rate of 120 and she was satting 93% on 2 L. Troponin was negative. BNP was elevated at 870. CBC was unremarkable. Electrolytes notable for a sodium
of 124 otherwise unremarkable. Creatinine was 0.6 with a BUN of 25 and normal glucose. She had a a CT of the chest with PE study which is negative for PE, but shows evidence for spiculated mass within the left upper lobe inferiorly and anteriorly,
with moderate left pleural effusion. She has never had effusion present before. Underwent thoracentesis today by IR.
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
Metastatic lung cancer, recently diagnosed March 2024 at [facility]
Acute on chronic shortness of breath
Acute hypoxemia, satting 93% on 2 L
Hyponatremia
Small subseg PE in RLL
Conditions present prior to admission
HTN
Atrial tachycardia
Heavy cigarette smoker
Severe emphysema on CT
Mild aortic insufficiency
Paroxysmal SVT
DVT
Diverticulitis
Moderate aortic insufficiency
Hyperlipidemia
AAA
MGUS
Diverticulosis
Osteoporosis
Plan
Hypoxemia noted on arrival, 93% on 2L
Not on o2 at home, will need eventual home O2 evaluation
Prior history of lung disease is noted including met lung cancer diagnosed at [facility]
Has seen [facility] for FU
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
s/p thora by IR, chem/culture/cyto pending
Chem: pH 7.5 - wbc 807 - tp 4.2 - ldh 211 -- exudative
Culture negative TD
CXR/CT obtained indicating improvement post procedure, can recheck in next 24-[address] reviewed, small PE noted, started on OAC
Can recheck CXR in AM for fluid recurrence
We discussed possibility of ASEPT use if needed
Other imaging reviewed--CT Chest noted, known L sided cancer
No prior imaging from [facility] noted
Prior ECHO results are reviewed indicating stable function
Resume on home meds
Smoking history noted--former/has quit
Smoking cessation ongoing encouraged
Underweight noted, BMI 19
Dietary consult
Will need outpatient pulmonary evaluation --we discussed following at [facility] where she is established
Reviewed with patient
If doing well and no recurrence of fluid, can assess for d/c and forward results to OP care team
PT/OT eval for d/c planning
Likely can d/c in the next 24 hours if doing well
Discussed plan of care with at bedside
Diagnostic Data
Chest X-Ray:
CT Chest 07/08/24-1. Small subsegmental embolus is seen within the right lower lobe. No evidence of right heart strain.
2. Severe centrilobular emphysema.
3. Small left pleural effusion, likely with some loculation.
4. Nodule within the lingular segment measures 2 cm in diameter, likely corresponding to the patient's known lung cancer.
5. Moderate coronary arterial calcification. Please correlate with symptoms of and risk factors for coronary artery disease, with further workup as clinically appropriate.
6. Multiple compression fractures at the thoracolumbar junction, which may be acute or chronic. Please correlate for symptoms in this region.
CT Scan: CHEST 07/06/24- Motion artifact limiting evaluation of the right lower lobe pulmonary arteries. Given this limitation, no convincing evidence for pulmonary embolism. No evidence for thoracic aortic dissection. There is aneurysmal dilation of
the ascending aorta, short axis diameter of 4.3 cm at the level of the right main pulmonary artery, top normal considered 4.0 cm. Spiculated mass within the left upper lobe inferiorly and anteriorly, likely patient's known lung carcinoma. Moderate
left pleural effusion with loculation superiorly and laterally. Some thickening along the margin of the effusion, suggesting a neoplastic component. Enlargement of both adrenal glands, which could represent metastatic disease, although could also
represent hyperplasia and/or adenomas. Evidence for bony metastatic disease and epidural extension involving the lower thoracic and upper lumbar spine. If further imaging evaluation is desired, consideration for MRI of the thoracic spine and upper
lumbar spine. Not mentioned above, there is also evidence for scattered rib metastatic lesions.
ECHO 10/04/22- CONCLUSIONS
1. Normal chamber sizes
2. Moderate to severe aortic insufficiency/mild stenosis
3. Normal left and right ventricular systolic function
4. Grade 1 diastolic dysfunction
5. Mild pulmonary hypertension
Echo: 07/29/21- CONCLUSIONS
1. Normal chamber sizes
2. Aortic valve sclerosis with moderate to severe aortic insufficiency
3. Hyperdynamic left ventricular wall motion and systolic function
4. Normal right ventricular systolic function
5. Grade 1 diastolic dysfunction
6. Top normal to mildly elevated right ventricular systolic pressure
PFT's:
Reports and relevant images were personally reviewed.
Total time spent on this encounter __51__ minutes which includes review of history, physical exam, medications, laboratory data, personal review of imaging, extensive review of outpatient records, discussion with care team and respiratory therapy.
Subjective Data
-
Date of Service:
Date of Service: July 08, 2024
Chief Complaint: Pulmonary Follow Up
Subjective:
Doing well today, more SOB with exertion
Tachycardia noted as well, she appears deconditioned
at bedside
Objective Data
Data Reviewed
Vital Signs / I&O / Oxygen:
Vital Signs
Temp Pulse Resp BP Pulse Ox
98 F 120 16 95/55 97
07/08/24 11:13 07/08/24 11:13 07/08/24 11:13 07/08/24 11:13 07/08/24 11:13
Intake and Output
07/07/24 07/08/24 07/09/24
06:59 06:59 06:59
Intake Total 120 / 120 420 / 420 480 / 480
Balance 120 / 120 420 / 420 480 / 480
SaO2 97
Nasal Cannula flow liters per 4
minute
Physical Exam
General: Comfortable, Poor Appetite and Other (NAD, thin)
HEENT: Normocephalic, Anicteric and Moist Mucous Membranes
Cardiovascular: S1-S2 and Regular Rhythm
Respiratory: Clear, Non-Labored Respirations and Other (decreased BS at bases)
GI: Soft, Non Distended and Non Tender
Neurology: Awake, Alert, Oriented and No Motor Deficits
Skin: Warm, Dry and Good Color
Labs/Micro/Reports
Lab Data
07/07/24 07:53
07/08/24 06:38
Microbiology
07/07/24 14:01 Pleural Fluid Body Fluid Culture - Preliminary
No Growth After 18-24 Hours
07/07/24 14:01 Pleural Fluid Gram Stain - Preliminary
--- NOTE | 2024-07-08 13:33 | PTCARENOTE ---
Patient ambulated from door to stretcher with assist x1. Patient has a weak, slow gait. Patient sitting at side of bed for lunch. family at bedside. Patient c/o intermittent neck stiffness (chronic) and prefers a rolled towel behind her head.
[2024-07-09] VITALS (7 sets, daily range): BP systolic 87–119; BP diastolic 46–73; PULSE 109–129; O2SAT 94
[2024-07-09] MEDS: XOPENEX HFA 45 MCG INHALER 1 PUFF INH ×3 (07:10→18:01)
[2024-07-09] MEDS: SPIRIVA RESPIMAT 2.5 MCG 2 PUFF INH (07:10)
[2024-07-09 07:46] LABS: Blood Urea Nitrogen 21 mg/dl (7-17); Calcium 7.4 mg/dl (8.4-10.2); Carbon Dioxide 33 mmol/L (22-30); Chloride 98 mmol/L (98-107); Estimated Creatinine Clearance 51 ml/min; Glucose 84 mg/dl (70-99); Potassium 3.9 mmol/L (3.5-5.1); Sodium 133 mmol/L (135-145); eGFR > 60.00
[2024-07-09] MEDS: ELIQUIS 10 MG PO ×2 (09:17→19:36)
[2024-07-09] MEDS: ULTRAM 50 MG PO ×3 (09:17→21:09)
[2024-07-09] MEDS: MUCINEX 600 MG PO ×2 (09:17→19:36)
[2024-07-09] MEDS: NEURONTIN 200 MG PO ×3 (09:17→21:09)
[2024-07-09] MEDS: TYLENOL 500 MG PO ×3 (09:17→21:09)
[2024-07-09] MEDS: CRESTOR 40 MG PO (09:17)
[2024-07-09] MEDS: FOLVITE 1 MG PO (09:17)
[2024-07-09] MEDS: TOPROL XL 25 MG PO (09:18)
--- NOTE | 2024-07-09 11:16 | CM ---
Addendum entered by Luzma Mora 07/09/24 15:52:
additional referrals requested to [facility] jason mccollum, referrals sent
Addendum entered by Luzma Mora 07/09/24 14:07:
Patient just seen by Ot therapy and per OT they are recommending SNF placement at this time. Patient and son in law reviewed with patient daughter via phone, options for SNF. and requested CM send referral to [facility] and
[facility]. CM will continue to follow for discharge planning needs.
Original Note:
Patient seen at bedside with son and patient . IMM completed and signed form placed on chart. patient referral sent to [facility] and CM spoke with [facility] and they confirmed receipt and that they would be calling to patient family
to schedule delivery. CM will continue to follow for discharge planning needs.
Plan; home with VN; [facility] and home O2.
--- NOTE | 2024-07-09 11:59 | W.PN.HOSP.TC ---
Today's Communication/Plan
-
Discharge
Assessment / Plan
Assessment / Plan
Gen-AAOx3, NAD
HEENT-NC, AT, anicteric, clear oral mm
Neck-supple
CV-reg, tachycardic, no M, +S1/S2
Lungs-clear B/L
Abd-soft, NT, ND
Ext-no edema
Musculoskeletal-no cyanosis, clubbing
Skin-warm and dry
Neuro-grossly non-focal
Psych-calm, cooperative
Acute hypoxic respiratory insufficiency -due to symptomatic pleural effusion, in the setting of underlying emphysema. Currently on 2 L nasal cannula oxygen. Wean down as able. Home oxygen to be arranged by case management.
Symptomatic left pleural effusion -concern for malignant effusion given underlying metastatic lung cancer.
Hemodynamically stable despite tachycardia. 950 cc clear peter pleural fluid removed via thoracentesis by IR today. Fluid cytology pending. LDH 211, total protein 4.2, consistent with exudative effusion based on Lights criteria.
Pulmonary consulted.
Subsegmental right lower lobe acute pulmonary embolism -noted on repeat CT chest. Continue Eliquis. Suspect malignancy induced PE.
Sinus tachycardia -asymptomatic. Etiology likely multifactorial including hypoxia and pulmonary embolism. Underlying malignancy.
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 Lung cancer diagnosed March 2024. Completed 4 rounds of chemotherapy. Follows up with [facility], Dr. Colette Mayer ([phone]). I did provide her with an update on July 07.
Hyponatremia -improved with fluid restriction. Nephrology following. Suspect etiology of hyponatremia is due to underlying lung cancer. Urine osmolality 340, urine sodium 36. Sodium relatively stable, 133.
Normocytic anemia -unknown chronicity. Etiology is likely due to metastatic cancer. Baseline hemoglobin unknown. Recommend outpatient follow-up.
Hx PSVT
COPD without exacerbation -stable.
Hx ascending aortic aneurysm
Essential hypertension
Hyperlipidemia -rosuvastatin.
History of breast cancer
Full code
Dispo -stable for discharge home with VN and home oxygen.
35 minutes spent in discharge process.
Anticipated Discharge: Today
Subjective/Interval History
-
Date of Service: July 09, 2024
Patient seen and examined. No complaints.
Objective Data
-
Labs:
Laboratory Results
07/09/24
06:45
Sodium 133 L
Potassium 3.9
Chloride 98
Carbon Dioxide 33 H
BUN 21 H
Creatinine 0.6
Glucose 84
Calcium 7.4 L
Vital Signs:
Vital Signs
Temp Pulse Resp BP Pulse Ox
98.0 F 88 18 92/46 96
07/09/24 11:00 07/09/24 11:00 07/09/24 11:00 07/09/24 11:00 07/09/24 11:00
I&O
07/08/24 07/09/24 07/10/24
06:59 06:59 06:59
Intake Total 420 / 420 1080 / 1080 240 / 240
Balance 420 / 420 1080 / 1080 240 / 240
Review of Systems
-
History Source: Patient
All other systems: Reviewed and negative
--- NOTE | 2024-07-09 12:06 | W.PN.NEPH.PH ---
Today's Communication / Plan
-
Stable for discharge from nephrology standpoint need to maintain fluid restriction at discharge
Assessment/Plan
-
Assessment
Metastatic lung cancer
Hyponatremia
Hypertension
Back pain from bony metastasis
Plan
sodium stable at 133 , continue 48 ounce fluid restriction at discharge
If serum sodium levels would continue to drop I would implement sodium tablets given hypotension
U osmo 340 high suggests SIADH from malignancy and pain , U na 36
Encourage oral solute intake
Discussed with family
Remains hypotensive off GERTRUDE
Stable for discharge from nephrology standpoint
-
-
Date of Service: July 09, 2024
CC / HPI / ROS
-
Chief Complaint:
hyponatremia
History of Present Illness:
sodium stable 133,
Remains hypotensive
BG low this am , but improved post meal
no fever
s/p thoracentesis 950cc
Review of Systems:
improving sob, no cp
no nv/
Labs
-
Labs:
WBC 7.6 10^3/uL (4.8-10.8) 07/07/24 07:53
RBC 3.41 10^6/uL (4.20-5.40) L 07/07/24 07:53
Hgb 10.4 g/dL (12.0-16.0) L 07/07/24 07:53
Hct 29.4 % (37.0-47.0) L 07/07/24 07:53
Plt Count 264 10^3/uL (130-400) 07/07/24 07:53
Sodium 133 mmol/L (135-145) L 07/09/24 06:45
Potassium 3.9 mmol/L (3.5-5.1) 07/09/24 06:45
Chloride 98 mmol/L (98-107) 07/09/24 06:45
Carbon Dioxide 33 mmol/L (22-30) H 07/09/24 06:45
BUN 21 mg/dl (7-17) H 07/09/24 06:45
Creatinine 0.6 mg/dL (0.6-1.0) 07/09/24 06:45
eGFR > 60.00 07/09/24 06:45
Glucose 84 mg/dl (70-99) 07/09/24 06:45
Calcium 7.4 mg/dl (8.4-10.2) L 07/09/24 06:45
Xem-D-Knmbxvrtelg Pept 870 pg/ml 07/06/24 18:32
Albumin 3.6 g/dl (3.5-5.0) 07/06/24 18:32
Physical Exam
-
Vital Signs:
Vital Signs
Temp Pulse Resp BP Pulse Ox
98.0 F 88 18 92/46 96
07/09/24 11:00 07/09/24 11:00 07/09/24 11:00 07/09/24 11:00 07/09/24 11:00
Cardiovascular:: Regular rate and rhythm
Respiratory:: Bilateral: Rales (fine at bases)
Lung Excursion:: Normal
Abdomen:: Nontender and Soft
Extremity Edema:: None: Bilateral:
Malone Catheter: No
--- NOTE | 2024-07-09 12:23 | W.DS.TRANS ---
DC Summary - Director Traffic And Planning
-
Discharge Instructions:
Discharge Diagnosis/Procedures Symptomatic pleural effusion, pulmonary embolism
, lung cancer, hyponatremia
Diet Restrict fluids to 48 oz,Regular
Activity With assistance,As tolerated
Driving Restrictions No driving
Bathing Restrictions None
Instructions:
Stand-Alone Forms:
Changes to Home Medications: No
Discharge Medications:
DC Medications w/original date entered in [employer]
acetaminophen 325 mg tablet (Tylenol) 500 mg PO TID 07/06/24
albuterol 90 mcg/actuation aerosol inhaler 90 mcg inhalation Q4 breathing 07/06/24
folic acid 1 mg tablet 1 mg PO DAILY 07/06/24
gabapentin 100 mg tablet 200 mg PO TID 07/06/24
guaifenesin 600 mg tablet, extended release 12 hr (Mucinex) 600 mg PO BID 07/06/24
lisinopril 20 mg tablet 40 mg PO DAILY 07/06/24
mesalamine 500 mg capsule,extended release 1,000 mg PO DAILY 07/06/24
metoprolol succinate 25 mg tablet,extended release 24 hr 25 mg PO DAILY 07/06/24
polyethylene glycol 3350 17 gram oral powder packet (Miralax) 17 g PO DAILY PRN constipation 07/06/24
rosuvastatin 40 mg tablet 40 mg PO DAILY 07/06/24
tiotropium bromide 18 mcg capsule with inhalation device (Spiriva with HandiHaler) 2 cap inhalation DAILY 07/06/24
tramadol 50 mg tablet 50 mg PO TID 07/06/24
apixaban 5 mg tablet (Eliquis) 5 mg PO BID #70 tabs 07/09/24
Home Medication Changes
Pending Results: No
[2024-07-10 03:16] VITALS: BP 107/64
[2024-07-10 07:00] VITALS: BP 110/80
[2024-07-10] MEDS: SPIRIVA RESPIMAT 2.5 MCG 2 PUFF INH (07:17)
[2024-07-10] MEDS: XOPENEX HFA 45 MCG INHALER 1 PUFF INH (07:17)
--- NOTE | 2024-07-10 08:55 | CM ---
Addendum entered by Luzma Mora 07/10/24 15:29:
CM confirmed with [facility] that they had patient referral and would restart services. Patient daughter phone number also provided.
Addendum entered by Luzma Mora 07/10/24 13:50:
Patient daughter called to CM to express concern about 'GI bug' at facility. DON spoke with daughter and CM called to Admissions Liaison. Patient daughter chose to take patient home and CM sent referral to [facility], [place]. CM will continue to follow
for discharge planning needs.
Addendum entered by Luzma Mora 07/10/24 10:05:
CM spoke with Cary at [facility] please call report to [phone]/fax [phone]. CM will confirm with physician and family.
Original Note:
Patient accepted to [facility], CM spoke with patient alissa Nicole and she indicated that the family would like the bed but would review with her father to confirm. CM spoke with liaison at [facility] and she is working to confirm bed. CM will confirm
report and fax numbers, and confirm with physician patient ability for transfer. [facility] delivered the home O2 tank and family will need to transport either home or to facility. CM will review with nursing if patient needs ambulance for
transfer. CM will continue to follow for discharge planning needs.
Plan; SNF: [facility]
[2024-07-10] MEDS: FOLVITE 1 MG PO (09:07)
[2024-07-10] MEDS: MUCINEX 600 MG PO (09:07)
[2024-07-10] MEDS: ELIQUIS 10 MG PO (09:11)
[2024-07-10] MEDS: ULTRAM 50 MG PO (09:11)
[2024-07-10] MEDS: NEURONTIN 200 MG PO (09:11)
[2024-07-10] MEDS: CRESTOR 40 MG PO (09:11)
[2024-07-10] MEDS: TYLENOL 500 MG PO (09:11)
[2024-07-10] MEDS: TOPROL XL 25 MG PO (09:12)
[2024-07-10 11:00] VITALS: BP 118/94
--- NOTE | 2024-07-10 11:09 | PTCARENOTE ---
attempted to call [facility] to give report x2, left voicemail with phone number for them to call us back
--- NOTE | 2024-07-10 11:11 | W.PN.HOSP.TC ---
Addendum entered and electronically signed by Antwan Roberts DO 07/21/24 15:30:
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
Original Note:
Today's Communication/Plan
-
Discharge
Assessment / Plan
Assessment / Plan
Gen-AAOx3, NAD
HEENT-NC, AT, anicteric, clear oral mm
Neck-supple
CV-reg, tachycardic, no M, +S1/S2
Lungs-clear B/L
Abd-soft, NT, ND
Ext-no edema
Musculoskeletal-no cyanosis, clubbing
Skin-warm and dry
Neuro-grossly non-focal
Psych-calm, cooperative
Acute hypoxic respiratory insufficiency -due to symptomatic pleural effusion, in the setting of underlying emphysema. Currently on 2 L nasal cannula oxygen. Wean down as able. Home oxygen to be arranged by case management.
Symptomatic left pleural effusion -concern for malignant effusion given underlying metastatic lung cancer.
Hemodynamically stable despite tachycardia. 950 cc clear peter pleural fluid removed via thoracentesis by IR today. Fluid cytology pending. LDH 211, total protein 4.2, consistent with exudative effusion based on Lights criteria.
Pulmonary consulted.
Subsegmental right lower lobe acute pulmonary embolism -noted on repeat CT chest. Continue Eliquis. Suspect malignancy induced PE.
Sinus tachycardia -asymptomatic. Etiology likely multifactorial including hypoxia and pulmonary embolism. Underlying malignancy.
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 Lung cancer diagnosed March 2024. Completed 4 rounds of chemotherapy. Follows up with [place], Dr. Colette Mayer ([phone]). I did provide her with an update on July 07.
Hyponatremia -improved with fluid restriction. Nephrology following. Suspect etiology of hyponatremia is due to underlying lung cancer. Urine osmolality 340, urine sodium 36. Sodium relatively stable, 133.
Normocytic anemia -unknown chronicity. Etiology is likely due to metastatic cancer. Baseline hemoglobin unknown. Recommend outpatient follow-up.
Hx PSVT
COPD without exacerbation -stable.
Hx ascending aortic aneurysm
Essential hypertension
Hyperlipidemia -rosuvastatin.
History of breast cancer
Full code
Dispo -stable for discharge to SNF today. Follow-up after discharge with oncology, PCP.
Anticipated Discharge: Today
Subjective/Interval History
-
Date of Service: July 10, 2024
Patient seen and examined. No complaints.
Objective Data
-
Vital Signs:
Vital Signs
Temp Pulse Resp BP Pulse Ox
97.8 F 104 18 118/94 96
07/10/24 11:00 07/10/24 11:00 07/10/24 11:00 07/10/24 11:00 07/10/24 11:00
I&O
07/09/24 07/10/24 07/11/24
06:59 06:59 06:59
Intake Total 1080 / 1080 480 / 480 480 / 480
Balance 1080 / 1080 480 / 480 480 / 480
Review of Systems
-
History Source: Patient
All other systems: Reviewed and negative
--- NOTE | 2024-07-11 13:00 | PN.CDI ---
CDI
- -
CDI:
Physician Documentation Request
Admit Date: 07/06/24 23:42
Dear Doctor Charles,
Patient admitted for pleural effusion.
07/09 Nephrology PN: 'U osmo 340 high suggests SIADH from malignancy and pain , U na 36'
Laboratory Tests
07/06/24 07/07/24 07/09/24
18:32 07:53 06:45
Sodium 124 L 134 L D 133 L
07/07/24
12:34
Urine Osmolality 340
Urine Sodium 36
Please clarify the following:
____ - SIADH was present on admission and is now resolved.
____ - SIADH was present on admission and is still being monitored, evaluated or treated
____ - SIADH was ruled out
____ - SIADH is still a likely, suspected, probable diagnosis
____ - Other
____ - Unable to determine
Use of terms such as suspected, likely, concern for, or probable (associated with a specific diagnosis that is being evaluated, monitored, or treated as if it exists) are acceptable and can be coded in the inpatient setting, when documented at the
time of discharge.
Thank you,
Ashlyn Brenner RN, BSN
CDI Specialist
Available via [place] text
Please use your independent medical judgment in providing your response.
== END 2024-07-10 12:16 | DRG 180 ==
LOC: 1 ACUTE 23:42
PROVIDERS: Emergency Medicine; Radiology Vascular & Interventional Radiology; Specialist; ADMITTING PHYSICIAN Internal Medicine; ATTENDING PHYSICIAN Hospitalist; CONSULT PHYSICIAN Internal Medicine Critical Care Medicine; CONSULT PHYSICIAN Specialist; EMERGENCY PHYSICIAN Student in an Organized Health Care Education/Training Program
PROC: 0W9B3ZX Drainage of Left Pleural Cavity, Percutaneous Approach, Diagnostic (ICD-10-PCS; 2024-07-07)
DX: C34.12 Malignant neoplasm of upper lobe, left bronchus or lung (principal); I26.93 Single subsegmental thrombotic pulmonary embolism without acute cor pulmonale; C79.51 Secondary malignant neoplasm of bone; J91.0 Malignant pleural effusion; Z68.1 Body mass index [BMI] 19.9 or less, adult; E22.2 Syndrome of inappropriate secretion of antidiuretic hormone; R63.6 Underweight; I10 Essential (primary) hypertension; E78.5 Hyperlipidemia, unspecified; I71.21 Aneurysm of the ascending aorta, without rupture; J44.9 Chronic obstructive pulmonary disease, unspecified; Z79.899 Other long term (current) drug therapy
CPT/HCPCS: 88305; 32555; 71045; 71275; 80048; 80053; 82150; 82962; 83615; 83880; 83935; 83986; 84155; 84157; 84300; 84484; 85025; 85027; 87015; 87070; 87205; 88112; 88341; 88342; 89051; 93005; 94640; 97162; 97166; 97535; 99285; Q9967